=== PATIENT | female | born 1995 | race Caucasian/White ===

== ENCOUNTER → 2016-11-15 | Outpatient (CLI) | payer BC | LOC: BHSO 11:41 | DX: F90.9 Attention-deficit hyperactivity disorder, unspecified type (principal) ==

== ENCOUNTER → 2017-04-23 | Outpatient (CLI) | payer BC | LOC: BHSO 14:57 | DX: F90.0 Attention-deficit hyperactivity disorder, predominantly inattentive type (principal) ==